=== PATIENT | male | born 1985 | race Caucasian/White ===

== ENCOUNTER 2018-12-04 12:33 | Inpatient (IN) | payer OTHER ==
[2018-12-04 13:58] VITALS: BMI 19.5
--- NOTE | 2018-12-04 14:26 | PN ---
[facility] COWS - Scale Resting Pulse: 0= ID 80 or Below Sweatin= Chills/Flushing Restless Observation: 0= Sits Still Pupil Size: 0= Normal to Room Light Bone or Joint Aches: 0= None Runny Nose/ Eye Tearin= Nasal Congestion GI Upset > 30mins: 0= None Tremor Observation of Outstretched Hands: 1= Tremor [place], Not Seen Yawning Observation: 1= 1-2x During Session Anxiety or Irritability: 2=Irritable/Anxious Goose Flesh Skin: 3=Piloerection COWS Score: 9
--- NOTE | 2018-12-04 14:34 | HP ---
COWS - Scale Resting Pulse: 0= [place] 80 or Below Sweatin=Flushed/Facial Moisture Restless Observation: 0= Sits Still Pupil Size: 0= Normal to Room Light Bone or Joint Aches: 0= None Runny Nose/ Eye Tearin= Runny Nose/Eyes GI Upset > 30mins: 0= None Tremor Observation: 1= Tremor [place], Not Seen Yawning Observation: 0= None Anxiety or Irritability: 2=Irritable/Anxious Goose Flesh Skin: 3=Piloerection COWS Score: 10 CIWA Score - Admission Criteria [facility] Guidelines: Admission for Medically Managed Detox: Requires at least one of the followin. CIWA greater than 12 2. Seizures within the past 24 hours 3. Delirium tremens within the past 24 hours 4. Hallucinations within the past 24 hours 5. Acute intervention needed for co occurring medical disorder 6. Acute intervention needed for co occurring psychiatric disorder 7. Severe withdrawal that cannot be handled at a lower level of care (continued vomiting, continued diarrhea, abnormal vital signs) requiring intravenous medication and/or fluids 8. Admission ROS [facility] Chief Complaint: " I have a family at home, have a good job and i am messing everything up, before it gets bad, I need to stop" Allergies/Adverse Reactions: Allergies Allergy/AdvReac Type Severity Reaction Status Date / Time No Known Allergies Allergy Verified 12/04/18 14:30 History of Present Illness: 33 y/o male with a 3 year hx of heroin addiction presents requesting heroin detox. This is pt's first time seeking detox and states he is self referred. Denies any court mandation, verbalizes coming from home. Pt swtates he has full custody of his 5 yr old daughter, has a good job, a place of his own and is seeking help before he "loses everything" Denies any past or current SI/HI. Denies any medical nor psychiatric hx. Utox positive for cocaine, fentanyl and opiates. Pt denied using anything other than heroin. Confidential Drug Utilization Report Search Terms: Gilberto Spivey, 08/10/1986 Search Date: 12/04/2018 02:20:24 PM The Drug Utilization Report below displays all of the controlled substance prescriptions, if any, that your patient has filled in the last twelve months. The information displayed on this report is compiled from pharmacy submissions to the Department, and accurately reflects the information as submitted by the pharmacies. This report was requested by: Mariah Calderon | Reference #: [id number] There are no results for the search terms that you entered. Exam Limitations: No Limitations - Ebola screening Have you traveled outside of the country in the last 21 days: No (N) Have you had contact with anyone from an Ebola affected area: No Have you been sick,other than usual withdrawal symptoms: No Do you have a fever: No - Review of Systems Constitutional: Chills, Loss of Appetite, Night Sweats, Changes in sleep, Unintentional Wgt. Loss EENT: reports: No Symptoms Reported Respiratory: reports: No Symptoms reported Cardiac: reports: No Symptoms Reported GI: reports: Constipated, Poor Appetite : reports: No Symptoms Reported Musculoskeletal: reports: Back Pain Integumentary: reports: No Symptoms Reported Neuro: reports: No Symptoms reported, Headache Endocrine: reports: Excessive Sweating, Intolerance to Cold, Intolerance to Heat Hematology: reports: No Symptoms Reported Psychiatric: reports: Mood/Affect Appropiate, Orientated x3 Other Systems: Reviewed and Negative Patient History - Patient Medical History Hx Anemia: No Hx Asthma: No Hx Chronic Obstructive Pulmonary Disease (COPD): No Hx Cancer: No Hx Cardiac Disorders: No Hx Congestive Heart Failure: No Hx Hypertension: No Hx Hypercholesterolemia: No Hx Pacemaker: No HX Cerebrovascular Accident: No Hx Seizures: No Hx Dementia: No Hx Diabetes: No Hx Gastrointestinal Disorders: No Hx Liver Disease: No Hx Genitourinary Disorders: No Hx Sexually Transmitted Disorders: No Hx Renal Disease (ESRD): No Hx Thyroid Disease: No Hx Human Immunodeficiency Virus (HIV): No (requesting testing) Hx Hepatitis C: No Hx Depression: No Hx Suicide Attempt: No (Denies current) Hx Bipolar Disorder: No Hx Schizophrenia: No - Patient Surgical History Past Surgical History: Yes Hx Cholecystectomy: Yes (Gall bladder removal - 06/2013) - PPD History Previous Implant?: Yes Documented Results: Negative w/o proof Implanted On Prior R Admission?: No PPD to be Administered?: Yes - Reproductive History Patient is a Female of Child Bearing Age (11 -55 yrs old): No - Smoking Cessation Smoking history: Current every day smoker Have you smoked in the past 12 months: Yes Aproximately how many cigarettes per day: 20 Initiated information on smoking cessation: Yes 'Breaking Loose' booklet given: 12/04/18 - Substance & Tx. History Hx Alcohol Use: No Hx Substance Use: Yes Substance Use Type: Heroin - Substances Abused Heroin Route: Inhalation Frequency: Daily Amount used: 15 bags ($150) Age of first use: 30 Date of Last Use: 12/04/18 Family Disease History - Family Disease History Family Disease History: Heart Disease: Mother (HTN) Admission Physical Exam [facility] - Vital Signs Vital Signs: Vital Signs - 24 hr 12/04/18 13:54 Temperature 96.7 F L Pulse Rate 73 Respiratory 18 Rate Blood Pressure 119/81 - Physical General Appearance: Yes: Mild Distress HEENTM: Yes: Nasal Congestion Respiratory: Yes: Lungs Clear, Normal Breath Sounds, No Respiratory Distress, No Accessory Muscle Use Neck: Yes: No masses,lesions,Nodules, Trachea in good position Breast: Yes: Breast Exam Deferred Cardiology: Yes: Regular Rate Abdominal: Yes: Normal Bowel Sounds, Non Tender, Soft Genitourinary: Yes: Within Normal Limits Back: Yes: Normal Inspection Musculoskeletal: Yes: full range of Motion, Gait Steady Extremities: Yes: Normal Capillary Refill, Normal Range of Motion Neurological: Yes: Fully Oriented, Alert, Motor Strength 5/5, Normal Mood/Affect Integumentary: Yes: Normal Color, Dry, Warm Lymphatic: Yes: Within Normal Limits Cleared for Admission [facility] - Detox or Rehab [facility] Level of Care: Medically Managed Detox Regimen/Protocol: Methadone [facility] Breath Alcohol Content Breath Alcohol Content: 0 Urine Drug Screen - Results Drug Screen Negative: No Urine Drug Screen Results: SOTERO-Cocaine, OPI-Opiates, FEN-Fentanyl Inpatient Rehab Admission - Rehab Decision to Admit Inpatient rehab admission?: No
[2018-12-04] MEDS ORDERED: METHOCARBAMOL 500 MG TABLET PO PRN (15:00)
[2018-12-04] MEDS ORDERED: NICOTINE POLACRILEX 4 MG GUM BUC PRN (15:00)
[2018-12-04] MEDS ORDERED: BISMUTH SUBSALICYLATE 524 MG/30 ML UD PO PRN (15:00)
[2018-12-04] MEDS ORDERED: ONDANSETRON *ODT* 4 MG TABLET SL PRN (15:00)
[2018-12-04] MEDS ORDERED: MENTHOL/PHENOL 1 EACH UD MM PRN (15:00)
[2018-12-04] MEDS ORDERED: MAG HYDROX/AL HYDROX/SIMETH 30 ML UNIT-DOSE CUP PO PRN (15:00)
[2018-12-04] MEDS ORDERED: IBUPROFEN 400 MG TABLET (FP) PO PRN (15:00)
[2018-12-04] MEDS ORDERED: MAGNESIUM CITRATE 300 ML BOTTLE PO PRN (15:00)
[2018-12-04] MEDS ORDERED: MAGNESIUM HYDROX 2400MG/30ML ORAL SUSPENSION 30 ML CUP PO PRN (15:00)
[2018-12-04] MEDS ORDERED: cloNIDine HCL 0.1 MG TABLET PO PRN (15:00)
[2018-12-04] MEDS ORDERED: ACETAMINOPHEN 325 MG TABLET (FP) PO PRN ×2 (15:00)
[2018-12-04] MEDS: NICOTINE 21 MG/24 HOURS TOPICAL PATCH TD SCH (17:36)
[2018-12-04] MEDS: MELATONIN 5 MG TABLETS PO PRN (22:04)
[2018-12-04] MEDS: THIAMINE HCL 100 MG TABLET (FP) PO SCH (22:04)
[2018-12-04] MEDS ORDERED: METHADONE HCL 10 MG TABLET (FOR DETOX USE ONLY) PO ONE (23:00)
[2018-12-05] MEDS ORDERED: PNEUMOC 13-VAL CONJ-DIP CRM/PF 0.5 ML DISP.SYRIN IM ONE (08:30)
[2018-12-05] MEDS ORDERED: METHADONE HCL 5 MG TABLET (FOR DETOX USE ONLY) PO ONE (10:00)
[2018-12-05] MEDS: PRENATAL VITAMINS W/ FOLIC ACID TABLET (FP) PO SCH (10:15)
[2018-12-05] MEDS: NICOTINE 21 MG/24 HOURS TOPICAL PATCH TD SCH (10:17)
--- NOTE | 2018-12-05 10:20 | PN ---
[facility] COWS - Scale Resting Pulse: 0= [place] 80 or Below Sweatin= Chills/Flushing Restless Observation: 0= Sits Still Pupil Size: 1= Pupils >than Normal Bone or Joint Aches: 1= Mild Discomfort Runny Nose/ Eye Tearin= Nasal Congestion GI Upset > 30mins: 1= Stomach Cramp Tremor Observation of Outstretched Hands: 1= Tremor [place], Not Seen Yawning Observation: 1= 1-2x During Session Anxiety or Irritability: 2=Irritable/Anxious Goose Flesh Skin: 0=Smooth Skin COWS Score: 9 BHS Progress Note (SOAP) Subjective: feeling better after methadone dosages discuss medication assisted treatment maintenance program narcan kit Objective: 12/05/18 10:23 Vital Signs Temperature 98.6 F 12/05/18 09:32 Pulse Rate 60 12/05/18 09:32 Respiratory Rate 18 12/05/18 09:32 Blood Pressure 100/53 L 12/05/18 09:32 O2 Sat by Pulse Oximetry (%) lab pending Assessment: 12/05/18 10:23 withdrawal sx Plan: continue detox
[2018-12-05] MEDS ORDERED: PNEUMOCOCCAL 23 VACCINE 0.5 ML VIAL IM ONE (12:00)
[2018-12-05 15:28] LABS: HEMATOCRIT 39.8 % (35.4-49); HEMOGLOBIN 13.8 GM/dL (11.7-16.9); MCH 29.2 pg (25.7-33.7); MCHC 34.7 g/dl (32.0-35.9); MEAN CELL VOLUME 84.2 fl (80-96); PLATELET COUNT 268 K/MM3 (134-434); RBC 4.73 M/mm3 (4.00-5.60); WHITE BLOOD COUNT 4.9 K/mm3 (4.0-10.0)
[2018-12-05 15:39] LABS: ALBUMIN 3.5 g/dl (3.4-5.0); ALK PHOS 90 U/L (45-117); ANION GAP 4 MMOL/L (8-16); BILIRUBIN,TOTAL 0.3 mg/dL (0.2-1); BLOOD UREA NITROGEN 7 mg/dL (7-18); CALCIUM 8.7 mg/dL (8.5-10.1); CHLORIDE 104 mmol/L (98-107); CO2 31 mmol/L (21-32); CREATININE 0.7 mg/dL (0.55-1.3); GLUCOSE,RANDOM 105 mg/dL (74-106); POTASSIUM 4.2 mmol/L (3.5-5.1); SGOT/AST 28 U/L (15-37); SGPT/ALT 32 U/L (13-61); SODIUM 140 mmol/L (136-145); TOT PROT 6.9 g/dl (6.4-8.2)
[2018-12-05] MEDS: MELATONIN 5 MG TABLETS PO PRN (22:53)
[2018-12-05] MEDS: THIAMINE HCL 100 MG TABLET (FP) PO SCH (22:53)
[2018-12-06 09:17] VITALS: BP 97/65; PULSE 68; TEMP 98.2
[2018-12-06] MEDS ORDERED: METHADONE HCL 10 MG TABLET (FOR DETOX USE ONLY) PO ONE (10:00)
[2018-12-06] MEDS: NICOTINE 21 MG/24 HOURS TOPICAL PATCH TD SCH (10:20)
[2018-12-06] MEDS: PRENATAL VITAMINS W/ FOLIC ACID TABLET (FP) PO SCH (10:20)
--- NOTE | 2018-12-06 11:18 | DS ---
[facility] Detox Discharge Summary Admission Date: 12/04/18 Discharge Date: 12/06/18 - History Present History: Opioid Dependence Additional Comments: 33 years old male admitted on 12/04/18 for opiate withdrawal stabilization feeling better today wants to go to rehab today sister pick him up today and go to the rehab facility patient is alert no acute distress denies suicidal ideation reporting support network from employer and family members - Physical Exam Results Vital Signs: Vital Signs Temperature 98.2 F 12/06/18 09:17 Pulse Rate 68 12/06/18 09:17 Respiratory Rate 18 12/06/18 09:17 Blood Pressure 97/65 12/06/18 09:17 O2 Sat by Pulse Oximetry (%) Pertinent Admission Physical Exam Findings: opiate withdrawal sx Laboratory Last Values WBC 4.9 K/mm3 (4.0-10.0) 12/05/18 11:00 RBC 4.73 M/mm3 (4.00-5.60) 12/05/18 11:00 Hgb 13.8 GM/dL (11.7-16.9) 12/05/18 11:00 Hct 39.8 % (35.4-49) 12/05/18 11:00 MCV 84.2 fl (80-96) 12/05/18 11:00 MCH 29.2 pg (25.7-33.7) 12/05/18 11:00 MCHC 34.7 g/dl (32.0-35.9) 12/05/18 11:00 RDW 13.0 % (11.9-15.9) 12/05/18 11:00 Plt Count 268 K/MM3 (134-434) 12/05/18 11:00 MPV 9.0 fl (7.5-11.1) 12/05/18 11:00 Sodium 140 mmol/L (136-145) 12/05/18 11:00 Potassium 4.2 mmol/L (3.5-5.1) 12/05/18 11:00 Chloride 104 mmol/L (98-107) 12/05/18 11:00 Carbon Dioxide 31 mmol/L (21-32) 12/05/18 11:00 Anion Gap 4 MMOL/L (8-16) L 12/05/18 11:00 BUN 7 mg/dL (7-18) 12/05/18 11:00 Creatinine 0.7 mg/dL (0.55-1.3) 12/05/18 11:00 Creat Clearance w eGFR 129.09 (>60) 12/05/18 11:00 Random Glucose 105 mg/dL (74-106) 12/05/18 11:00 Calcium 8.7 mg/dL (8.5-10.1) 12/05/18 11:00 Total Bilirubin 0.3 mg/dL (0.2-1) 12/05/18 11:00 AST 28 U/L (15-37) 12/05/18 11:00 ALT 32 U/L (13-61) 12/05/18 11:00 Alkaline Phosphatase 90 U/L (45-117) 12/05/18 11:00 Total Protein 6.9 g/dl (6.4-8.2) 12/05/18 11:00 Albumin 3.5 g/dl (3.4-5.0) 12/05/18 11:00 RPR Titer Nonreactive (NONREACTIVE) 12/05/18 11:00 HIV 1&2 Antibody Screen Negative 12/05/18 11:00 HIV P24 Antigen Negative 12/05/18 11:00 lab noted - Treatment Hospital Course: Detox Protocol Followed, Detoxed Safely, Responded well, Discharged Condition Good, Rehab Referral Accepted Patient has Accepted a Rehab Referral to: community support 12 steps self help - Medication Discharge Medications: Ambulatory Orders Naloxone HCl [Narcan] 4 mg NS ASDIR PRN #1 spray 12/06/18 - Diagnosis (1) Opiate withdrawal Status: Acute - AMA Did Patient Leave Against Medical Advice: No
[2018-12-07] MEDS ORDERED: METHADONE HCL 5 MG TABLET (FOR DETOX USE ONLY) PO ONE (06:00)
== END 2018-12-06 10:50 | disposition home or self-care (01) | DRG 773 ==
LOC: YASAS 12:33 → Y3N 15:29
PROVIDERS: ADMIT Surgery; ATTEND Surgery
PROC: HZ2ZZZZ Detoxification Services for Substance Abuse Treatment (ICD-10-PCS; principal; 2018-12-04)
DX: F11.23 Opioid dependence with withdrawal (principal); F17.210 Nicotine dependence, cigarettes, uncomplicated
CPT/HCPCS: 36415; 80053; 85027; 86593; 87389